=== PATIENT | female | born 1950 | race Caucasian/White ===

== ENCOUNTER 2020-05-30 09:55 | Emergency (ER) | payer MEDICARE ==
[2020-05-30] MEDS ORDERED: Ketorolac Tromethamine 30 MG/ML VIAL ONE (10:27)
[2020-05-30 10:33] LABS: #Basophils 0.1 thou/uL (0.0-0.2); #Eosinphils 0.3 thou/uL (0.0-0.7); #Lymphocytes 2.7 thou/uL (1.20-3.40); #Monocytes 0.8 thou/uL (0.11-0.59); #Neutrophils 5.8 thou/uL (1.40-6.50); %Basophils 0.7 % (0.0-1.0); %Eosinophils 2.7 % (0.0-10.0); %Lymphocytes 28.3 % (21.0-51.0); %Neutrophils 60.3 % (42.0-75.0); Hemoglobin 15.3 g/dL (12.0-16.0); Mean Corpuscular HGB CONC 33.1 g/dL (32.0-36.0); Mean Corpuscular Hemoglobin 32.4 pg (27.0-31.0); Mean Platelet Volume 9.2 fL (7.4-10.4); Platelet Count 245 thou/uL (130-400); RBC Distribution Width 14.5 % (11.5-14.5); Red Blood Cell (RBC) Count 4.72 mill/uL (4.20-5.40); White Blood Cell (WBC) Count 9.5 thou/uL (4.8-10.8)
--- NOTE | 2020-05-30 10:44 | RAD ---
LEFT ANKLE 3 VIEWS: HISTORY: Left ankle pain and swelling. FINDINGS/IMPRESSION: Soft tissue swelling is present. The ankle mortise is maintained. No fracture, dislocation, or bone destruction is seen. A plantar calcaneal spur is present. POS: [id number]
--- NOTE | 2020-05-30 10:55 | ULT ---
VENOUS DOPPLER ULTRASOUND OF THE LEFT LOWER EXTREMITY: HISTORY: Left lower extremity pain. TECHNIQUE: Goldstein scale ultrasound with color flow and spectral Doppler imaging of the deep venous system of the l eft lower extremity was performed. FINDINGS: There is good flow, compression, and augmentation noted in the left common femoral, femoral, deep fem oral, popliteal, posterior tibial, and greater saphenous veins. IMPRESSION: No evidence of deep vein thrombosis in the left lower extremity. POS: [facility]
[2020-05-30 11:47] LABS: ALT (SGPT) 24 U/L (8-55); AST (SGOT) 19 U/L (5-34); Albumin 3.9 g/dL (3.4-4.8); Alkaline Phosphatase 67 U/L (40-110); Anion Gap 16 mmol/L (10-20); BUN (Urea Nitrogen) 34 mg/dL (9.8-20.1); Bilirubin, Total 0.6 mg/dL (0.2-1.2); CRP (Inflammatory) 0.94 mg/dL (= or < 0.5); Calc. Creatinine Clearance 0 mL/min (70-130); Carbon Dioxide 23 mmol/L (23-31); Chloride 102 mmol/L (98-107); Estimated GFR-MDRD 23; Globulin 3.2 g/dL (2.4-3.5); Glucose 300 mg/dL (83-110); Potassium 4.2 mmol/L (3.5-5.1); Protein, Total 7.1 g/dL (6.0-8.3); Sodium 137 mmol/L (136-145)
== END 2020-05-30 12:05 | disposition home or self-care (01) ==
LOC: ERS 09:55
DX: M25.572 Pain in left ankle and joints of left foot (principal); E11.9 Type 2 diabetes mellitus without complications; Z79.4 Long term (current) use of insulin; E78.5 Hyperlipidemia, unspecified; E78.00 Pure hypercholesterolemia, unspecified; I10 Essential (primary) hypertension; Z79.899 Other long term (current) drug therapy
CPT/HCPCS: 36415; 80053; 84550; 85025; 85652; 86140; 96374; J1885

== ENCOUNTER 2020-10-24 12:12 | Outpatient (CLI) | payer MEDICARE | END 2020-10-24 12:13 | disposition home or self-care (01) | LOC: BICULT 12:12 | PROVIDERS: ATTEND Internal Medicine Nephrology | DX: I12.9 Hypertensive chronic kidney disease with stage 1 through stage 4 chronic kidney disease, or unspecified chronic kidney disease (principal); N18.30 Chronic kidney disease, stage 3 unspecified; R93.421 Abnormal radiologic findings on diagnostic imaging of right kidney | CPT/HCPCS: 76770 ==

== ENCOUNTER 2021-02-17 09:44 | Day surgery (SDC) | payer MEDICARE ==
[2021-02-14 14:23] VITALS: BMI 43.0
[2021-02-17] MEDS ORDERED: Magnevist 469MG/ML 20 ML VIAL ONE (09:55)
[2021-02-17] MEDS ORDERED: PROPOFOL 200 MG/20 ML VIAL ONE (12:45)
[2021-02-17] MEDS ORDERED: Lidocaine 1% PF 5 ML VIAL ONE (12:45)
== END 2021-02-17 15:00 | disposition home or self-care (01) ==
LOC: MRI 09:44
PROVIDERS: ATTEND Urology
DX: N28.1 Cyst of kidney, acquired (principal); D35.01 Benign neoplasm of right adrenal gland; E11.22 Type 2 diabetes mellitus with diabetic chronic kidney disease; N18.4 Chronic kidney disease, stage 4 (severe); K59.01 Slow transit constipation; E66.01 Morbid (severe) obesity due to excess calories; Z68.41 Body mass index [BMI] 40.0-44.9, adult; Z79.4 Long term (current) use of insulin; Z79.899 Other long term (current) drug therapy; Z91.013 Allergy to seafood; Z91.041 Radiographic dye allergy status; Z90.5 Acquired absence of kidney
CPT/HCPCS: 36416; 74183; A9579; J2704

== ENCOUNTER 2022-03-15 19:24 | Inpatient (IN) | payer MEDICARE ==
[2022-03-15 20:27] LABS: #Monocytes 1.3 thou/uL (0.11-0.59); #Neutrophils 13.8 thou/uL (1.40-6.50); %Basophils 0.1 % (0.0-1.0); %Eosinophils 0.1 % (0.0-10.0); %Lymphocytes 6.3 % (21.0-51.0); %Monocytes 7.8 % (0.0-10.0); %Neutrophils 85.7 % (42.0-75.0); Hemoglobin 13.6 g/dL (12.0-16.0); Mean Corpuscular HGB CONC 33.2 g/dL (32.0-36.0); Mean Corpuscular Hemoglobin 32.9 pg (27.0-31.0); Mean Platelet Volume 8.5 fL (7.4-10.4); Platelet Count 212 thou/uL (130-400); RBC Distribution Width 14.1 % (11.5-14.5); Red Blood Cell (RBC) Count 4.13 mill/uL (4.20-5.40); White Blood Cell (WBC) Count 16.2 thou/uL (4.8-10.8)
[2022-03-15 20:50] LABS: ALT (SGPT) 17 U/L (8-55); AST (SGOT) 15 U/L (5-34); Albumin 3.5 g/dL (3.4-4.8); Alkaline Phosphatase 59 U/L (40-110); Anion Gap 13 mmol/L (10-20); BUN (Urea Nitrogen) 29 mg/dL (9.8-20.1); Bilirubin, Total 1.2 mg/dL (0.2-1.2); Calc. Creatinine Clearance 0 mL/min (70-130); Calcium 8.8 mg/dL (7.8-10.44); Carbon Dioxide 21 mmol/L (23-31); Chloride 102 mmol/L (98-107); Estimated GFR 28; Globulin 2.6 g/dL (2.4-3.5); Glucose 136 mg/dL (83-110); Protein, Total 6.1 g/dL (5.8-8.1); Sodium 132 mmol/L (136-145)
[2022-03-15 21:28] LABS: SARS-CoV-2 NAA Rapid Test Not Detected (NotDetected)
[2022-03-15] MEDS ORDERED: cefTRIAXone\\ROCEPHIN 1 GM VIAL ONE (22:33)
[2022-03-15] MEDS ORDERED: Azithromycin 500 MG VIAL ONE (23:31)
[2022-03-15] MEDS ORDERED: Ondansetron ODT 4 MG TAB PO PRN (23:44)
[2022-03-15] MEDS ORDERED: HumaLOG 300 UNITS/3 ML VIAL SC PRN ×2 (23:44)
[2022-03-15] MEDS ORDERED: Dextrose 5% in Water 1,000 ML IV PRN (23:44)
[2022-03-15] MEDS ORDERED: Dextrose 50% Abboject 50 ML SYRINGE SLOW IVP PRN (23:44)
[2022-03-15] MEDS ORDERED: Acetaminophen 650 MG Suppository PR PRN (23:44)
[2022-03-15] MEDS ORDERED: Ondansetron PF 4 MG/2 ML Vial IVP PRN (23:44)
[2022-03-16] MEDS: Acetaminophen 325 MG TAB PO PRN ×6 (01:19→23:03)
[2022-03-16 02:03] VITALS: BMI 42.7
[2022-03-16 04:59] LABS: #Lymphocytes 1.7 thou/uL (1.20-3.40); #Monocytes 1.6 thou/uL (0.11-0.59); #Neutrophils 11.4 thou/uL (1.40-6.50); %Basophils 0.1 % (0.0-1.0); %Eosinophils 0.2 % (0.0-10.0); %Lymphocytes 11.3 % (21.0-51.0); %Monocytes 10.6 % (0.0-10.0); %Neutrophils 77.8 % (42.0-75.0); Hemoglobin 13.1 g/dL (12.0-16.0); Mean Corpuscular HGB CONC 33.4 g/dL (32.0-36.0); Mean Corpuscular Hemoglobin 33.1 pg (27.0-31.0); Mean Platelet Volume 8.6 fL (7.4-10.4); Platelet Count 212 thou/uL (130-400); RBC Distribution Width 14.1 % (11.5-14.5); Red Blood Cell (RBC) Count 3.96 mill/uL (4.20-5.40); White Blood Cell (WBC) Count 14.6 thou/uL (4.8-10.8)
[2022-03-16 05:13] LABS: Phosphorus 2.9 mg/dL (2.3-4.7)
[2022-03-16 05:20] LABS: Anion Gap 14 mmol/L (10-20); BUN (Urea Nitrogen) 31 mg/dL (9.8-20.1); Calc. Creatinine Clearance 42 mL/min (70-130); Calcium 8.9 mg/dL (7.8-10.44); Carbon Dioxide 21 mmol/L (23-31); Chloride 102 mmol/L (98-107); Estimated GFR 26; Glucose 188 mg/dL (83-110); Magnesium 1.6 mg/dL (1.6-2.6); Potassium 3.9 mmol/L (3.5-5.1); Sodium 133 mmol/L (136-145)
[2022-03-16] MEDS: Sodium Chloride 0.9% 1,000 ML IV SCH ×2 (06:04→14:30)
[2022-03-16 06:12] LABS: Bacteria/HPF None Seen HPF (None Seen); Bilirubin Negative (Negative); Blood, Urine Negative (Negative); Clarity Clear (Clear); Glucose, Urine (Dipstick) 200 mg/dL (Negative); Ketone, Urine Negative (Negative); Leukocyte 75 Leu/uL (Negative); Nitrite Negative (Negative); Protein, Urine (Dipstick) 30 mg/dL (Neg-Trace); RBC/HPF 0-3 HPF (0-3); Specific Gravity, Urine 1.014 (1.002-1.036); Squamous Epithelial 0-3 HPF (0-3); Urobilinogen Normal mg/dL (Less than 2)
[2022-03-16 06:13] LABS: Urine Culture Reflex Yes Yes
[2022-03-16] MEDS: Enoxaparin Sodium 30 MG/0.3 ML SYRINGE SC SCH (08:47)
[2022-03-16] MEDS ORDERED: Milk Of Magnesia 30 ML UDCUP PO PRN (10:30)
[2022-03-16] MEDS ORDERED: Bisacodyl 10 MG SUPP PR SCH (10:30)
[2022-03-16 16:52] LABS: Legionella Urinary Ag Negative (Negative)
[2022-03-16] MEDS ORDERED: Diclofenac 1% 100 GM GEL TP PRN (20:33)
[2022-03-16] MEDS ORDERED: Dulaglutide (Trulicity) 0.75 MG/0.5 ML Pen.Injctr SC SCH (20:45)
[2022-03-16] MEDS: Azithromycin 500 MG in Sodium Chloride 0.9% 250 ML 250 ML IVPB SCH (21:54)
[2022-03-16] MEDS: Atorvastatin Calcium 10 MG TAB PO SCH (21:54)
[2022-03-16] MEDS: Insulin Glargine 30 UNITS/0.3 ML VIAL SC SCH (21:55)
[2022-03-16] MEDS: Multivitamin W/ Minerals 1 TAB PO SCH (21:55)
[2022-03-16] MEDS: Ezetimibe 10 MG TAB PO SCH (21:55)
[2022-03-16] MEDS: cefTRIAXone\\ROCEPHIN 1 GM in Sodium Chloride 0.9% 100 ML IVPB SCH (23:02)
[2022-03-17] MEDS ORDERED: Bisacodyl 10 MG SUPP PR PRN (00:01)
[2022-03-17 04:23] LABS: #Eosinphils 0.1 thou/uL (0.0-0.7); #Lymphocytes 1.3 thou/uL (1.20-3.40); #Monocytes 1.5 thou/uL (0.11-0.59); #Neutrophils 7.5 thou/uL (1.40-6.50); %Basophils 0.4 % (0.0-1.0); %Eosinophils 0.7 % (0.0-10.0); %Lymphocytes 12.1 % (21.0-51.0); %Neutrophils 72.7 % (42.0-75.0); Hemoglobin 12.7 g/dL (12.0-16.0); Mean Corpuscular HGB CONC 32.6 g/dL (32.0-36.0); Mean Corpuscular Hemoglobin 32.9 pg (27.0-31.0); Mean Platelet Volume 8.3 fL (7.4-10.4); Platelet Count 209 thou/uL (130-400); Red Blood Cell (RBC) Count 3.88 mill/uL (4.20-5.40); White Blood Cell (WBC) Count 10.4 thou/uL (4.8-10.8)
[2022-03-17 04:39] LABS: Anion Gap 13 mmol/L (10-20); BUN (Urea Nitrogen) 31 mg/dL (9.8-20.1); Calc. Creatinine Clearance 41 mL/min (70-130); Calcium 8.6 mg/dL (7.8-10.44); Carbon Dioxide 21 mmol/L (23-31); Chloride 106 mmol/L (98-107); Estimated GFR 26; Glucose 101 mg/dL (83-110); Potassium 3.8 mmol/L (3.5-5.1); Sodium 136 mmol/L (136-145)
[2022-03-17] MEDS: Levothyroxine Sodium 100 MCG TAB PO SCH (05:09)
[2022-03-17] MEDS: Allopurinol 100 MG TAB PO SCH (09:20)
[2022-03-17] MEDS: Glimepiride 4 MG TAB PO SCH ×2 (09:20→15:48)
[2022-03-17] MEDS: Senokot 8.6 MG TAB PO SCH (09:20)
[2022-03-17] MEDS: Multivitamin W/ Minerals 1 TAB PO SCH ×2 (09:21→21:11)
[2022-03-17] MEDS: Hydrochlorothiazide 25 MG TAB PO SCH (09:21)
[2022-03-17] MEDS: Lisinopril 10 MG TAB PO SCH (09:22)
[2022-03-17] MEDS: Enoxaparin Sodium 30 MG/0.3 ML SYRINGE SC SCH (09:22)
[2022-03-17] MEDS: Polyethylene Glycol 3350 17 GM Packet PO SCH (09:22)
[2022-03-17] MEDS: Acetaminophen 325 MG TAB PO PRN ×4 (09:34→21:10)
[2022-03-17] MEDS: Albuterol Sulfate 2.5 mg/3 ml Neb NEB PRN ×2 (13:52→21:49)
[2022-03-17] MEDS: Ezetimibe 10 MG TAB PO SCH (21:11)
[2022-03-17] MEDS: Atorvastatin Calcium 10 MG TAB PO SCH (21:11)
[2022-03-17] MEDS: cefTRIAXone\\ROCEPHIN 1 GM in Sodium Chloride 0.9% 100 ML IVPB SCH (21:12)
[2022-03-17] MEDS: Azithromycin 500 MG in Sodium Chloride 0.9% 250 ML 250 ML IVPB SCH (21:12)
[2022-03-17] MEDS: Insulin Glargine 30 UNITS/0.3 ML VIAL SC SCH (21:13)
[2022-03-18] MEDS: Acetaminophen 325 MG TAB PO PRN ×3 (01:15→08:43)
[2022-03-18] MEDS: Levothyroxine Sodium 100 MCG TAB PO SCH (05:09)
[2022-03-18 05:15] LABS: Anion Gap 12 mmol/L (10-20); BUN (Urea Nitrogen) 28 mg/dL (9.8-20.1); Calc. Creatinine Clearance 47 mL/min (70-130); Calcium 9.2 mg/dL (7.8-10.44); Carbon Dioxide 21 mmol/L (23-31); Chloride 108 mmol/L (98-107); Estimated GFR 31; Glucose 111 mg/dL (83-110); Potassium 4.2 mmol/L (3.5-5.1); Sodium 137 mmol/L (136-145)
[2022-03-18] MEDS: Senokot 8.6 MG TAB PO SCH (08:38)
[2022-03-18] MEDS: Glimepiride 4 MG TAB PO SCH (08:38)
[2022-03-18] MEDS: Polyethylene Glycol 3350 17 GM Packet PO SCH (08:38)
[2022-03-18] MEDS: Hydrochlorothiazide 25 MG TAB PO SCH (08:39)
[2022-03-18] MEDS: Lisinopril 10 MG TAB PO SCH (08:39)
[2022-03-18] MEDS: Multivitamin W/ Minerals 1 TAB PO SCH (08:40)
[2022-03-18] MEDS: Allopurinol 100 MG TAB PO SCH (08:40)
[2022-03-18] MEDS: Enoxaparin Sodium 30 MG/0.3 ML SYRINGE SC SCH (08:45)
[2022-03-18] MEDS ORDERED: Lidocaine 5% Patch TD SCH (09:30)
[2022-03-18 12:33] VITALS: TEMP 98.8
[2022-03-18 13:10] VITALS: BP 149/96
[2022-03-18] MEDS ORDERED: Transdermal Patch Removal TOP SCH (21:00)
== END 2022-03-18 16:20 | disposition home health service (06) | DRG 871 ==
LOC: ERS 19:24 → 2NO 22:58 → OBSVTOIN 03-16 11:35
PROVIDERS: ADMIT Student in an Organized Health Care Education/Training Program; ATTEND Hospitalist
DX: A41.9 Sepsis, unspecified organism (principal); J18.9 Pneumonia, unspecified organism; J96.01 Acute respiratory failure with hypoxia; E87.1 Hypo-osmolality and hyponatremia; Z68.41 Body mass index [BMI] 40.0-44.9, adult; N18.4 Chronic kidney disease, stage 4 (severe); E78.5 Hyperlipidemia, unspecified; Z20.822 Contact with and (suspected) exposure to COVID-19; E66.01 Morbid (severe) obesity due to excess calories; K59.00 Constipation, unspecified; I12.9 Hypertensive chronic kidney disease with stage 1 through stage 4 chronic kidney disease, or unspecified chronic kidney disease; E11.22 Type 2 diabetes mellitus with diabetic chronic kidney disease; Z88.8 Allergy status to other drugs, medicaments and biological substances; Z91.013 Allergy to seafood; Z79.899 Other long term (current) drug therapy; Z79.4 Long term (current) use of insulin; Z98.890 Other specified postprocedural states
CPT/HCPCS: 36415; 36416; 71045; 80048; 80053; 81001; 83605; 83735; 83880; 84100; 84484; 85025; 87040; 87086; 87633; 87899; 93005; 93306; 94640; 96361; 96365; 96367; 96372; G0378; J0456; J0696; J1650; J1815; J3490; J7050; J7611; J7999; U0002

== ENCOUNTER 2022-03-20 13:27 | Outpatient (CLI) | payer MEDICARE | END 2022-03-20 13:28 | disposition home or self-care (01) | LOC: BICRAD 13:27 | PROVIDERS: ATTEND Family Medicine | DX: M54.42 Lumbago with sciatica, left side (principal); M47.816 Spondylosis without myelopathy or radiculopathy, lumbar region | CPT/HCPCS: 72100 ==

== ENCOUNTER 2022-04-14 13:39 | Outpatient (CLI) | payer MEDICARE | END 2022-04-14 13:40 | disposition home or self-care (01) | LOC: BICCT 13:39 | PROVIDERS: ATTEND Family Medicine | DX: J18.9 Pneumonia, unspecified organism (principal); M51.16 Intervertebral disc disorders with radiculopathy, lumbar region; M51.35 Other intervertebral disc degeneration, thoracolumbar region; M48.05 Spinal stenosis, thoracolumbar region; M48.061 Spinal stenosis, lumbar region without neurogenic claudication; M25.78 Osteophyte, vertebrae; M47.816 Spondylosis without myelopathy or radiculopathy, lumbar region; M46.06 Spinal enthesopathy, lumbar region; M51.17 Intervertebral disc disorders with radiculopathy, lumbosacral region; M48.07 Spinal stenosis, lumbosacral region; R91.8 Other nonspecific abnormal finding of lung field | CPT/HCPCS: 71046; 72131 ==

== ENCOUNTER 2023-05-05 09:09 | Inpatient (IN) | payer MEDICARE ==
[2023-05-05] MEDS ORDERED: HYDROcodone/Acetaminophen 5/325 mg Tablet ONE (10:53)
[2023-05-05] MEDS ORDERED: Ondansetron PF 4 MG/2 ML Vial ONE (10:53)
[2023-05-05] MEDS ORDERED: Morphine 2 MG/ML VIAL ONE (10:55)
[2023-05-05 11:19] LABS: #Eosinphils 0.2 thou/uL (0.0-0.7); #Monocytes 1.1 thou/uL (0.11-0.59); #Neutrophils 7.3 thou/uL (1.40-6.50); %Basophils 0.3 % (0.0-1.0); %Eosinophils 1.5 % (0.0-10.0); %Lymphocytes 17.2 % (21.0-51.0); %Monocytes 10.3 % (0.0-10.0); Hematocrit 48.7 % (36.0-47.0); Hemoglobin 16.2 g/dL (12.0-16.0); Mean Corpuscular HGB CONC 33.3 g/dL (32.0-36.0); Mean Corpuscular Hemoglobin 31.8 pg (27.0-31.0); Mean Corpuscular Volume 95.7 fl (78.0-98.0); Mean Platelet Volume 10.7 fL (7.4-10.4); Platelet Count 234 10x3/uL (130-400); RBC Distribution Width 15.1 % (11.5-14.5); Red Blood Cell (RBC) Count 5.09 mill/uL (4.20-5.40); White Blood Cell (WBC) Count 10.4 10x3/uL (4.8-10.8)
[2023-05-05 11:49] LABS: ALT (SGPT) 22 U/L (8-55); AST (SGOT) 17 U/L (5-34); Albumin 4.9 g/dL (3.4-4.8); Alkaline Phosphatase 62 U/L (40-110); Anion Gap 15 mmol/L (10-20); BUN (Urea Nitrogen) 31 mg/dL (9.8-20.1); Bilirubin, Total 0.6 mg/dL (0.2-1.2); Calc. Creatinine Clearance 0 mL/min (70-130); Calcium 10.6 mg/dL (7.8-10.44); Carbon Dioxide 24 mmol/L (23-31); Chloride 103 mmol/L (98-107); Estimated GFR 27; Globulin 2.8 g/dL (2.4-3.5); Glucose 159 mg/dL (83-110); Lipase 48 U/L (8-78); Potassium 4.6 mmol/L (3.5-5.1); Protein, Total 7.7 g/dL (5.8-8.1); Sodium 137 mmol/L (136-145)
[2023-05-05] MEDS ORDERED: Morphine 4 MG/ML VIAL ONE (12:39)
[2023-05-05 13:09] LABS: Bacteria/HPF None Seen HPF (None Seen); Bilirubin Negative (Negative); Blood, Urine Negative (Negative); CAUTI Indications for Culture Pelvic or flank pain; Clarity Clear (Clear); Glucose, Urine (Dipstick) Normal (Negative); Ketone, Urine Negative (Negative); Leukocyte Negative Leu/uL (Negative); Nitrite Negative (Negative); Protein, Urine (Dipstick) 30 mg/dL (Neg-Trace); RBC/HPF 0-3 HPF (0-3); Specific Gravity, Urine 1.009 (1.002-1.036); Squamous Epithelial 0-3 HPF (0-3); Urobilinogen Normal mg/dL (Less than 2); WBC/HPF 0-3 HPF (0-3); pH, Urine 5.5 (5.0-9.0)
[2023-05-05 13:17] LABS: Urine Culture Reflex No No
[2023-05-05 13:22] LABS: Magnesium 1.8 mg/dL (1.6-2.6)
[2023-05-05] MEDS ORDERED: Senokot S 8.6-50 MG TAB PO PRN (15:10)
[2023-05-05] MEDS ORDERED: Calcium Carbonate 500 MG ChewTAB PO PRN (15:10)
[2023-05-05] MEDS ORDERED: HYDROcodone/Acetaminophen 10/325 mg Tablet PO PRN (15:10)
[2023-05-05] MEDS ORDERED: Guaifenesin DM 100-10/5 ML UDCUP PO PRN (15:10)
[2023-05-05] MEDS ORDERED: Insulin Regular 300 UNITS/3 ML VIAL SC PRN (15:40)
[2023-05-05] MEDS ORDERED: Glucagon 1 MG/ML KIT IM PRN (15:40)
[2023-05-05] MEDS ORDERED: Dextrose 5% in Water 1,000 ML IV PRN (15:40)
[2023-05-05] MEDS ORDERED: Dextrose 50% Abboject 50 ML SYRINGE SLOW IVP PRN (15:40)
[2023-05-05] MEDS ORDERED: Magnesium 2 GM/50 ML(in water) 2 GM in Premix 1 BAG IVPB SCH (16:00)
[2023-05-05 17:10] VITALS: BMI 40.6
[2023-05-05] MEDS ORDERED: HYDROcodone/Acetaminophen 10/325 mg Tablet PO SCH (18:00)
[2023-05-05] MEDS: HYDROcodone/Acetaminophen 10/325 mg Tablet PO PRN (18:38)
[2023-05-05] MEDS: Insulin Glargine 30 UNITS/0.3 ML VIAL SC SCH (20:41)
[2023-05-05] MEDS: Heparin 5,000 UNITS/ML VIAL SC SCH (20:41)
[2023-05-05] MEDS: Gabapentin 300 MG CAP PO SCH (20:42)
[2023-05-05] MEDS: Ezetimibe 10 MG TAB PO SCH (20:42)
[2023-05-05] MEDS: Atorvastatin Calcium 10 MG TAB PO SCH (20:42)
[2023-05-05] MEDS ORDERED: Calcitriol 0.25 MCG CAP PO SCH (21:00)
[2023-05-05] MEDS ORDERED: EZETIMIBE PO SCH (21:00)
[2023-05-05] MEDS ORDERED: [UNRECOGNIZED DRUG - OTHER] PO SCH (21:00)
[2023-05-05] MEDS ORDERED: SIMVASTATIN PO SCH (21:00)
[2023-05-06] MEDS ORDERED: Ondansetron ODT 4 MG TAB PO PRN (02:02)
[2023-05-06 04:38] LABS: #Eosinphils 0.1 thou/uL (0.0-0.7); #Monocytes 1.2 thou/uL (0.11-0.59); #Neutrophils 9.3 thou/uL (1.40-6.50); %Basophils 0.3 % (0.0-1.0); %Eosinophils 0.4 % (0.0-10.0); %Lymphocytes 10.3 % (21.0-51.0); %Monocytes 10.2 % (0.0-10.0); %Neutrophils 78.2 % (42.0-75.0); Hematocrit 45.4 % (36.0-47.0); Hemoglobin 14.6 g/dL (12.0-16.0); Mean Corpuscular HGB CONC 32.2 g/dL (32.0-36.0); Mean Corpuscular Hemoglobin 31.5 pg (27.0-31.0); Mean Corpuscular Volume 97.8 fl (78.0-98.0); Mean Platelet Volume 10.5 fL (7.4-10.4); Platelet Count 220 10x3/uL (130-400); RBC Distribution Width 15.2 % (11.5-14.5); Red Blood Cell (RBC) Count 4.64 mill/uL (4.20-5.40); White Blood Cell (WBC) Count 11.9 10x3/uL (4.8-10.8)
[2023-05-06 05:01] LABS: Anion Gap 14 mmol/L (10-20); BUN (Urea Nitrogen) 32 mg/dL (9.8-20.1); Calc. Creatinine Clearance 41 mL/min (70-130); Calcium 9.7 mg/dL (7.8-10.44); Carbon Dioxide 24 mmol/L (23-31); Chloride 103 mmol/L (98-107); Estimated GFR 27; Glucose 165 mg/dL (83-110); Potassium 4.1 mmol/L (3.5-5.1); Sodium 137 mmol/L (136-145)
[2023-05-06] MEDS: Levothyroxine Sodium 100 MCG TAB PO SCH (06:41)
[2023-05-06] MEDS: Allopurinol 100 MG TAB PO SCH (07:49)
[2023-05-06] MEDS: Gabapentin 300 MG CAP PO SCH ×2 (07:49→20:30)
[2023-05-06] MEDS: Ondansetron PF 4 MG/2 ML Vial IVP PRN (08:54)
[2023-05-06] MEDS: Heparin 5,000 UNITS/ML VIAL SC SCH ×3 (08:58→20:30)
[2023-05-06] MEDS ORDERED: Dulaglutide [Trulicity] 0.75 MG/0.5 ML SC SCH (15:30)
[2023-05-06] MEDS: Acetaminophen 325 MG TAB PO PRN (16:19)
[2023-05-06] MEDS: Insulin Glargine 30 UNITS/0.3 ML VIAL SC SCH (20:30)
[2023-05-06] MEDS: Atorvastatin Calcium 10 MG TAB PO SCH (20:30)
[2023-05-06] MEDS: Ezetimibe 10 MG TAB PO SCH (20:31)
[2023-05-06] MEDS: Metoprolol Tartrate 25 MG TAB PO SCH (20:31)
[2023-05-06] MEDS: HYDROcodone/Acetaminophen 10/325 mg Tablet PO PRN (23:19)
[2023-05-07] MEDS: HYDROcodone/Acetaminophen 10/325 mg Tablet PO PRN (05:39)
[2023-05-07] MEDS: Levothyroxine Sodium 100 MCG TAB PO SCH (05:39)
[2023-05-07] MEDS: Gabapentin 300 MG CAP PO SCH ×2 (08:55→21:13)
[2023-05-07] MEDS: Allopurinol 100 MG TAB PO SCH (08:55)
[2023-05-07] MEDS: Metoprolol Tartrate 25 MG TAB PO SCH ×2 (08:55→21:13)
[2023-05-07] MEDS: Heparin 5,000 UNITS/ML VIAL SC SCH ×3 (08:56→21:15)
[2023-05-07] MEDS ORDERED: traMADol HCl 50 MG TAB PO PRN (10:36)
[2023-05-07] MEDS: Lidocaine 4% Patch TD SCH (12:45)
[2023-05-07] MEDS: Ondansetron PF 4 MG/2 ML Vial IVP PRN (14:29)
[2023-05-07] MEDS ORDERED: Scopolamine 1 mg/72 hour Patch TOP SCH (16:15)
[2023-05-07] MEDS ORDERED: Transdermal Patch Removal TOP SCH (21:00)
[2023-05-07] MEDS: Atorvastatin Calcium 10 MG TAB PO SCH (21:13)
[2023-05-07] MEDS: Ezetimibe 10 MG TAB PO SCH (21:13)
[2023-05-07] MEDS: Insulin Glargine 30 UNITS/0.3 ML VIAL SC SCH (21:14)
[2023-05-08] MEDS: Acetaminophen 325 MG TAB PO PRN (00:33)
[2023-05-08 05:04] LABS: #Eosinphils 0.2 thou/uL (0.0-0.7); #Monocytes 1.3 thou/uL (0.11-0.59); #Neutrophils 5.1 thou/uL (1.40-6.50); %Basophils 0.2 % (0.0-1.0); %Eosinophils 2.4 % (0.0-10.0); %Lymphocytes 26.9 % (21.0-51.0); %Monocytes 14.1 % (0.0-10.0); %Neutrophils 55.6 % (42.0-75.0); Hematocrit 38.5 % (36.0-47.0); Hemoglobin 12.4 g/dL (12.0-16.0); Mean Corpuscular HGB CONC 32.2 g/dL (32.0-36.0); Mean Corpuscular Volume 99.5 fl (78.0-98.0); Mean Platelet Volume 10.9 fL (7.4-10.4); Platelet Count 204 10x3/uL (130-400); RBC Distribution Width 15.3 % (11.5-14.5); Red Blood Cell (RBC) Count 3.87 mill/uL (4.20-5.40); White Blood Cell (WBC) Count 9.1 10x3/uL (4.8-10.8)
[2023-05-08 05:21] LABS: Anion Gap 14 mmol/L (10-20); BUN (Urea Nitrogen) 48 mg/dL (9.8-20.1); Calc. Creatinine Clearance 30 mL/min (70-130); Calcium 8.8 mg/dL (7.8-10.44); Carbon Dioxide 24 mmol/L (23-31); Chloride 102 mmol/L (98-107); Estimated GFR 19; Glucose 110 mg/dL (83-110); Potassium 3.1 mmol/L (3.5-5.1); Sodium 137 mmol/L (136-145)
[2023-05-08] MEDS: Levothyroxine Sodium 100 MCG TAB PO SCH (06:37)
[2023-05-08 07:24] VITALS: TEMP 97.4
[2023-05-08] MEDS ORDERED: Potassium Chloride 20 MEQ TAB PO SCH (08:30)
[2023-05-08] MEDS: Allopurinol 100 MG TAB PO SCH (10:20)
[2023-05-08] MEDS: Heparin 5,000 UNITS/ML VIAL SC SCH (10:22)
[2023-05-08] MEDS: Gabapentin 300 MG CAP PO SCH (10:23)
[2023-05-08] MEDS: Lidocaine 4% Patch TD SCH (10:24)
[2023-05-08 11:24] VITALS: BP 125/58
[2023-05-12] MEDS ORDERED: Calcitriol 0.25 MCG CAP PO SCH (09:00)
== END 2023-05-08 15:20 | disposition home or self-care (01) | DRG 552 ==
LOC: ERS 09:09 → 2SW 14:50 → OBSVTOIN 05-06 13:25
PROVIDERS: ADMIT Hospitalist; ATTEND Internal Medicine
DX: M54.50 Low back pain, unspecified (principal); Z68.41 Body mass index [BMI] 40.0-44.9, adult; N18.4 Chronic kidney disease, stage 4 (severe); E11.22 Type 2 diabetes mellitus with diabetic chronic kidney disease; E03.9 Hypothyroidism, unspecified; E66.01 Morbid (severe) obesity due to excess calories; M48.061 Spinal stenosis, lumbar region without neurogenic claudication; G89.29 Other chronic pain; K82.8 Other specified diseases of gallbladder; K80.20 Calculus of gallbladder without cholecystitis without obstruction; I51.89 Other ill-defined heart diseases; R00.0 Tachycardia, unspecified; Z91.013 Allergy to seafood; Z90.5 Acquired absence of kidney; Z88.8 Allergy status to other drugs, medicaments and biological substances; Z79.84 Long term (current) use of oral hypoglycemic drugs; Z79.4 Long term (current) use of insulin; Z79.890 Hormone replacement therapy; Z79.899 Other long term (current) drug therapy; Z98.890 Other specified postprocedural states
CPT/HCPCS: 36415; 36416; 71045; 74176; 76705; 80048; 80053; 81001; 83690; 83735; 84484; 85025; 93306; 96361; 96372; 96374; 96375; 96376; G0378; J1644; J1815; J2270; J2272; J2405; J3475

== ENCOUNTER 2024-03-29 11:44 | Outpatient (CLI) | payer MEDICARE | END 2024-03-29 11:45 | disposition home or self-care (01) | LOC: BICULT 11:44 | PROVIDERS: ATTEND Family Medicine | DX: N93.9 Abnormal uterine and vaginal bleeding, unspecified (principal); R93.89 Abnormal findings on diagnostic imaging of other specified body structures | CPT/HCPCS: 76856 ==